=== PATIENT | female | born 1980 | race Caucasian/White ===

== ENCOUNTER 2018-02-28 08:58 | Emergency (ER) | payer OTHER, BC ==
[~2018-02-28] VITALS: Ht 167.6 cm; Wt 81.6 kg
[2018-02-28 09:08] VITALS: BP 157/92
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
[2018-02-28] MEDS ORDERED: CYCL5TAB PO (10:14)
[2018-02-28] MEDS ORDERED: HYDR-3164 PO (10:14)
[2018-02-28] MEDS ORDERED: IBUPROFEN 400 MG TABLET. PO ONE (10:15)
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
== END 2018-02-28 10:25 | disposition home or self-care (01) ==
LOC: ER 08:58
DX: S00.03XA Contusion of scalp, initial encounter (principal); M54.2 Cervicalgia; V43.52XA Car driver injured in collision with other type car in traffic accident, initial encounter; Y93.I9 Activity, other involving external motion; Y92.488 Other paved roadways as the place of occurrence of the external cause; Y99.8 Other external cause status
CPT/HCPCS: 70450; 72125; 81025; 99284-25

== ENCOUNTER → 2018-03-20 | Outpatient (CLI) | payer OTHER, BC ==
[2018-02-28 09:08] VITALS: BP 157/92
[~2018-03-20] MED LIST: CYCL5TAB PO; HYDR-3164 PO
--- NOTE | 2018-03-20 13:08 | KCIC ---
EXAM: Lumbar spine, 5 views. HISTORY: Pain. COMPARISON: None. FINDINGS: 5 views of the lumbar spine are obtained. There is minimal lumbar levocurvature. There is minimal retrolisthesis of L5 on S1 which is likely projectional. There is minimal anterior endplate remodeling at multiple levels. There is slight facet arthropathy at the lumbosacral junction. IMPRESSION: 1. No acute osseous finding. 2. Minimal multilevel degenerative change, described above. Electronically signed by: Greta White MD (03/20/2018 1:04 PM) [place] [id number]
== END | disposition home or self-care (01) ==
LOC: KCIC 12:35
PROVIDERS: ATTEND Nurse Practitioner Family
DX: M47.896 Other spondylosis, lumbar region (principal); M43.17 Spondylolisthesis, lumbosacral region; M12.88 Other specific arthropathies, not elsewhere classified, other specified site
CPT/HCPCS: 72110

== ENCOUNTER → 2018-06-30 | Outpatient (CLI) | payer BC ==
[~2018-06-30] MED LIST changes: +ACET325T9 PO
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
== END | disposition home or self-care (01) ==
LOC: KCIC MRI 13:56
PROVIDERS: ATTEND Nurse Practitioner Family
DX: M51.36 Other intervertebral disc degeneration, lumbar region (principal); M47.817 Spondylosis without myelopathy or radiculopathy, lumbosacral region; M25.78 Osteophyte, vertebrae
CPT/HCPCS: 72148

== ENCOUNTER → 2018-07-24 | Outpatient (CLI) | payer BC ==
[~2018-07-24] MED LIST changes: +IOHEXOL 180 MG/ML 10 ML VIAL. ONE; +methylPREDNISolone ACETATE 40 MG/ML VIAL. ONE; +methylPREDNISolone ACETATE 80 MG/ML VIAL. ONE
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
== END | disposition home or self-care (01) ==
LOC: PNCL 09:38
PROVIDERS: ATTEND Anesthesiology
DX: M51.16 Intervertebral disc disorders with radiculopathy, lumbar region (principal); Z79.899 Other long term (current) drug therapy
CPT/HCPCS: 62323; J1030; J1040; Q9965

== ENCOUNTER → 2018-08-09 | Outpatient (CLI) | payer BC ==
--- NOTE | 2018-08-10 05:51 | PAIN ---
DATE OF SERVICE: 08/09/2018 PROGRESS NOTE FOR PAIN CLINIC DIAGNOSIS: Lumbar radiculopathy with lumbar degenerative disk disease. HISTORY OF PRESENT ILLNESS: The patient is a 37-year-old female who returns for followup status post lumbar epidural steroid injection x 1. The patient reports about 20% overall improvement in the low back and right leg. The patient reports still some pain in the right side of low back. Leg is doing better, but the back is still significantly painful. The left leg is cleared up significantly as well. The patient reports it is still aching and sharp in the back, shooting in the legs, more on the right than the left at this time with some radiating pain as well. The patient reports in the past week, it has been a 4 on a scale of 10 at its worst, 2 on average and 1 at its least and is a 2 today. The patient reports she has been increasing her activities with greater ease and comfort, sleeping well at night, but no significant increase in distance walking or increase in activity, but she is doing all of these more comfortably. The patient reports no new motor or sensory deficits, no new bowel or bladder incontinence or other complaints. PHYSICAL EXAMINATION: VITAL SIGNS: The patient's blood pressure is 152/91, pulse 71, respirations 18, temperature is 98.1 degrees Fahrenheit. Height is 5 feet 6 inches, weight is 203 pounds. GENERAL: The patient is awake, alert, oriented, appropriate, very pleasant demeanor. HEENT: Head shows normocephalic, atraumatic. Extraocular muscles are intact and symmetrical. Oral cavity: Mucous membranes moist and pink. Dentition is intact. NECK: Shows anterior throat supple without palpable lymphadenopathy noted. Swallow reflex is symmetrical. CHEST: Shows normal with inspection. Breath sounds are clear to auscultation bilaterally. HEART: Shows S1, S2 clear. No murmurs auscultated. ABDOMEN: Soft, nontender, nondistended. No palpable organomegaly is noted. No rebound or guarding demonstrated. BACK: Shows spine grossly in the midline. Normal appearing thoracic kyphosis and lumbar lordotic curvature. Lumbar paraspinous muscle shows symmetrical on inspection, on palpation shows some moderate tenderness diffusely, but only with palpation in the low lumbar distribution, slightly more on the right than the left with palpation, but without radiation. EXTREMITIES: The patient's lower extremities show deep tendon reflexes 2+ in the patellar and 1+ in the tendo calcaneus tendons. Motor exam is strong with 5/5 dorsiflexion, extension, quadriceps and hamstring flexion symmetrical. Peripheral pulses are 1+ posterior tibial. No peripheral edema is noted. Options were discussed with the patient. The patient's old chart was reviewed as her current medication regimen updated. Current review of systems updated today as well. We will proceed with a second lumbar epidural steroid injection today with fluoroscopic guidance. Risks were again discussed including, but not limited to, bleeding, infection, possibility of epidural hematoma, subsequent neurological compromise, dural puncture, headaches, spinal cord and/or nerve damage, side effects of steroid medication and poor results regarding pain control. The patient understands and wished to proceed. The patient will return to the clinic in approximately 2 weeks for followup. She was counseled as to return appointment, activity level and side effects to be aware of. DIAGNOSIS: Lumbar radiculopathy with lumbar degenerative disk disease. PROCEDURE: Lumbar epidural steroid injection, translaminar approach at L4-L5 level using C-arm fluoroscopic guidance under sterile prep and drape using local anesthetic. MEDICATION INJECTED: A total of 120 mg Depo-Medrol plus 10 mL of preservative-free normal saline and 2 mL of Isovue for contrast. CONDITION ON DISCHARGE: Stable. The patient tolerated the procedure well, had no complications. PRABHAKAR EDEN MD DR: SOLIS/ren JOB#: [id number] / [id number]
== END ==
LOC: PNCL 12:50
PROVIDERS: ATTEND Anesthesiology
DX: M51.16 Intervertebral disc disorders with radiculopathy, lumbar region (principal); M54.5 Low back pain
CPT/HCPCS: 62323; J1030; J1040; Q9965

== ENCOUNTER → 2018-08-30 | Outpatient (CLI) | payer BC ==
[~2018-08-30] MED LIST changes: -IOHEXOL 180 MG/ML 10 ML VIAL. ONE; -methylPREDNISolone ACETATE 40 MG/ML VIAL. ONE; -methylPREDNISolone ACETATE 80 MG/ML VIAL. ONE
--- NOTE | 2018-08-30 19:56 | PAIN ---
DATE OF SERVICE: 08/30/2018 PROGRESS NOTE FOR PAIN CLINIC DIAGNOSES: Lumbar radiculopathy with lumbar degenerative disk disease. HISTORY OF PRESENT ILLNESS: The patient is a 37-year-old female who returns for followup status post lumbar epidural steroid injection x 2. The patient reports about 80% improvement overall to the second injection with pain in the low back, but only very minimal. The patient reports she is doing quite a bit better, increasing her activity with greater walking, standing greater periods of time, walking greater distances, doing work and household activities, traveling with greater ease and comfort. The patient reports it awakens her from sleep occasionally, but not about every 7-8 hours at night of sleep and usually once a night if at all. The patient reports no new motor or sensory deficits. Reports the pain over the past week is its worst as it has been 2 months ago, 10 to 1 on average, 1 at its least and is a 1 today. The patient reports it can be sharp in the back and radiating into the right lower extremity, but very rare. The patient reports no new motor or sensory deficits, no new bowel or bladder incontinence or other complaints. PHYSICAL EXAMINATION: VITAL SIGNS: The patient's blood pressure is 146/93, pulse 61, respirations 16, temperature is 98.3 degrees Fahrenheit. Height is 5 feet 6 inches, weight is 200 pounds. GENERAL: The patient is awake, alert, oriented, appropriate, very pleasant demeanor. HEENT: Shows normocephalic and atraumatic. Extraocular movements intact and symmetrical. Oral cavity: Mucous membranes moist and pink. Dentition is intact. NECK: Shows anterior throat supple without palpable lymphadenopathy noted. Swallow reflex symmetrical. CHEST: Shows normal on inspection. Breath sounds clear to auscultation bilaterally. HEART: Shows S1, S2 clear. No murmurs auscultated. ABDOMEN: Soft, nontender, nondistended. BACK: Shows spine grossly in the midline. Normal appearing thoracic kyphosis and lumbar lordotic curvature. Lumbar paraspinous muscle shows symmetrical on inspection, with palpation shows some mild tenderness, but only diffusely in the low lumbar distribution of paraspinous muscles bilaterally, but only diffusely without radiation. The patient has good rotational motion of lumbar spine both laterally as well as extension and flexion without difficulty. EXTREMITIES: Lower extremities show deep tendon reflexes at 2+ in the patellar, 1+ tendo calcaneus tendons. Motor exam is strong with 5/5 dorsiflexion, extension, quadriceps and hamstring flexion symmetrical. Peripheral pulses are 1+ posterior tibial. No peripheral edema is noted. SKIN: The patient's back shows very small area from previous injection slightly erythematous, just slightly raised, but without streaks, without any drainage, exudate, scaling or tenderness. PLAN: Options were discussed with the patient. The patient's old chart was reviewed as her current medication regimen updated. Current review of systems updated today as well. We will hold on any further injections at this time as the patient is doing quite a bit better. We would like to see how her activity does with increasing activity and how the pain does with this as well. The patient will increase her activity as tolerated and will return to the clinic on an as needed basis at this time. PRABHAKAR EDEN MD DR: SOLIS/ren JOB#: [id number] / [id number]
== END | disposition home or self-care (01) ==
LOC: PNCL 09:31
PROVIDERS: ATTEND Anesthesiology
DX: M51.16 Intervertebral disc disorders with radiculopathy, lumbar region (principal)
CPT/HCPCS: G0463